=== PATIENT | male | born 1945 | race Caucasian/White ===

== ENCOUNTER → 2017-04-20 | Outpatient (CLI) | payer OTHER, MEDICARE ==
[~2017-04-20] MED LIST: ASCA500 PO; GARL705C PO; GLY/5 PO; MULT-506 PO; ROSU40TA PO
--- NOTE | 2017-04-20 10:11 | DIAGNOSTIC IMAGING REPORT ---
KUB HISTORY: N40.1 Benign prostatic hypertrophy with urinary [id number] COMPARISON: KUB 04/03/2016. FINDINGS: The bowel gas pattern is non-obstructive. There is no organomegaly. No renal calculi. No ureteral calculi. No pneumoperitoneum or pneumatosis. No fracture. Moderate degenerative changes of the bilateral hips. IMPRESSION: 1. Nonobstructive bowel gas pattern. 2. No renal or ureteral stones. Electronically signed by: José Miguel Stahl M.D. 04/20/2017 10:09 AM Dictated Date/Time: 04/20/2017 10:08 AM
== END | disposition home or self-care (01) ==
LOC: C.RAD 09:46
PROVIDERS: ATTEND Urology
DX: N40.1 Benign prostatic hyperplasia with lower urinary tract symptoms (principal); N13.9 Obstructive and reflux uropathy, unspecified

== ENCOUNTER 2023-08-20 22:51 | Inpatient (IN) ==
[2023-08-20 23:53] LABS: Adenovirus PCR Not Detected (NotDetected); Bordetella parapertussis PCR Not Detected (NotDetected); Bordetella pertussis PCR Not Detected (NotDetected); Chlamydia pneumoniae PCR Not Detected (NotDetected); Coronavirus 229E PCR Not Detected (NotDetected); Coronavirus HKU1 PCR Not Detected (NotDetected); Coronavirus NL63 PCR Not Detected (NotDetected); Coronavirus OC43PCR Not Detected (NotDetected); Human Metapneumovirus PCR Not Detected (NotDetected); Influenza A PCR Not Detected (NotDetected); Influenza B PCR Not Detected (NotDetected); Mycoplasma pneumoniae PCR Not Detected (NotDetected); Parainfluenza Virus 1 PCR Not Detected (NotDetected); Parainfluenza Virus 2 PCR Not Detected (NotDetected); Parainfluenza Virus 3 PCR Not Detected (NotDetected); Parainfluenza Virus 4 PCR Not Detected (NotDetected); Respiratory Syncytial VirusPCR Not Detected (NotDetected); Rhinovirus/Enterovirus PCR Not Detected (NotDetected)
[2023-08-20 23:59] LABS: Coronavirus CoV-2 (COVID19)PCR DETECTED (NotDetected)
--- NOTE | 2023-08-21 00:31 | Emergency Department Note ---
History of Present Illness General Chief complaint: Fever Stated complaint: FEVER,SORE THROAT Time Seen by Provider: 08/21/23 00:12 History of Present Illness Maximum Pain Intensity: 6 NAME: JAMIN DURHAM AGE: 78 SEX: M : 1945 ARRIVES VIA: Walk-In INFORMANT: Patient ED PROVIDER(S): MAGGIE Dupree, Con Ortiz MD The patient is a 78-year-old male who arrives to the emergency department for viral illness. Initial workup was performed in triage, he received a viral swab as well as a group A strep swab. The patient did test positive for COVID. I was able to assess the patient in triage two. Upon assessment he reports a sore throat and fever, since Sunday night at 8pm. He reports body aches, chills. He denies cough, congestion, chest pain, or shob. He reports he has been taking Tylenol for his symptoms which has not helped. The patient has rigors, he is febrile at 37.9, and appears ill. Home Medications Medication Instructions Recorded Confirmed Type glyburide 5 mg tablet 10 mg PO BID 03/31/19 08/21/23 History cholecalciferol (vitamin D3) 25 25 mcg PO DAILY 08/21/23 08/21/23 History mcg (1,000 unit) tablet (Vitamin D3) gabapentin 1 dose PO UD 08/21/23 08/21/23 History nirmatrelvir 300 mg (150 mg See Rx Instructions PO .COMPLEX 08/21/23 Rx x2)-ritonavir 100 mg tablet,dose #30 ea pack (Paxlovid) omeprazole 20 mg tablet,delayed 20 mg PO DAILY 08/21/23 08/21/23 History release pioglitazone 1 tab PO DAILY 08/21/23 08/21/23 History rosuvastatin 1 tab PO HS 08/21/23 08/21/23 History Allergies Allergy/AdvReac Type Severity Reaction Status Date / Time No Known Allergies Allergy Unknown Verified 06/27/23 10:49 Past Med/Surg History Medical History (Updated 08/22/23 @ 21:06 by MAGGIE Crandall) GERD (gastroesophageal reflux disease) Diabetes mellitus, type 2 NIDDM Leukemia Hearing deficit BL GUTIERREZ Glaucoma Hyperlipidemia Surgical History History of tooth extraction History of hernia repair X 2 History of colonoscopy Social History Smoking Status: Never smoker Second Hand Exposure: Yes (PREVIOUS EXPOSURE IN WORKPLACE); Do You Dip or Chew Tobacco: No; Hx Alcohol Use: No Hx Substance Use: No Preferred Language: Burundian Communication Ability: Effective Human Capital Manager Required: No Beliefs That Will Affect Care: None Current Living Situation: Alone Feels Safe at Home: Yes Assistive Devices: Glasses and Hearing Aid - Bilateral Physical Exam Vital Signs Vital Signs - 24 hr 08/20/23 22:54 08/21/23 01:00 08/21/23 01:06 Temperature 37.6 C H Temperature Source Oral Pulse Rate 84 83 93 H Pulse Rate [Apical] Pulse Rhythm Regular Pulse Rhythm [Apical] Pulse Strength [Apical] Respiratory Rate 16 16 Respiratory Effort / Characteristics Respiratory Depth Respiratory Pattern Blood Pressure 172/73 H Blood Pressure [Right Arm] Blood Pressure Mean 106 Blood Pressure Mean [Right Arm] Blood Pressure Position [Right Arm] Pulse Oximetry 97 92 Oxygen Delivery Method Room Air Room Air Sepsis Recent Fever Within 48 Hours Yes Sepsis New/Unexplained Change in Mental Status No Sepsis Action Taken by Nursing No Action Required 08/21/23 01:58 Temperature 37.9 C H Temperature Source Oral Pulse Rate Pulse Rate [Apical] 83 Pulse Rhythm Pulse Rhythm [Apical] Regular Pulse Strength [Apical] Normal Respiratory Rate 16 Respiratory Effort / Characteristics Non-Labored Spontaneous Respiratory Depth Normal Respiratory Pattern Regular Blood Pressure Blood Pressure [Right Arm] 156/76 H Blood Pressure Mean Blood Pressure Mean [Right Arm] 102 Blood Pressure Position [Right Arm] Lying Pulse Oximetry 91 Oxygen Delivery Method Room Air Sepsis Recent Fever Within 48 Hours Sepsis New/Unexplained Change in Mental Status Sepsis Action Taken by Nursing VITALS: Vitals are noted on the nurse's note and reviewed by myself. Vital signs stable. GENERAL: 78-year-old male, in mild distress, nondiaphoretic, well-developed well-nourished. SKIN: The skin was without rashes, erythema, edema, or bruising. HEAD: Normocephalic atraumatic. EARS: External auditory canals clear, tympanic membranes pearly hull without erythema or effusion bilaterally. EYES: Pupils equal round and reactive to light and accommodation. Conjunctivae without injection, sclerae without icterus. Extraocular movements intact. NOSE: Patent, turbinates without inflammation or discharge. No sinus tenderness. MOUTH: Mucous membranes moist. Tonsils are not present. Pharynx with erythema no exudate. Uvula midline. Airway patent. Tongue does not deviate. NECK: Supple without nuchal rigidity. Cervical lymphadenopathy. No thyromegaly. Cervical spine is nontender. No JVD. HEART: Regular rate and rhythm without murmurs gallops or rubs. LUNGS: Coarse lung sound bilateral lower lobes, left upper and lower lobe. ABDOMEN: Positive bowel sounds x 4. Soft, nontender, without masses or organomegaly. Hendrickson sign negative. No guarding or rebound tenderness. MUSCULOSKELETAL: No muscle atrophy, erythema, or edema noted. Full range of motion without joint tenderness in all extremities. No tenderness to palpation. Normal gait. Strength 5/5 throughout. NEURO: Patient was alert and oriented to person place and time. No focal neurological deficits. Course Administered Medications Discontinued Medications Acetaminophen (Acetaminophen 500 Mg Tab) 1,000 mg PO NOW STA Stop: 08/21/23 00:32 Last Admin: 08/21/23 01:15 Dose: 1,000 mg Documented By: IDDaly Albuterol (Albuterol Hfa 8 Gm Inhaler) 2 puffs INH Q2H ELLA Stop: 09/20/23 02:29 Last Admin: 08/21/23 03:40 Dose: Not Given Documented By: EMIGDIO Dexamethasone (Dexamethasone Sod Inj 4 Mg/Ml Vial) 6 mg IV NOW STA Stop: 08/21/23 02:20 Last Admin: 08/21/23 02:38 Dose: 6 mg Documented By: MERCEDES Enoxaparin Sodium (Enoxaparin Inj 40 Mg/0.4 Ml Syr) 40 mg SQ Q24H ELLA Stop: 09/20/23 08:59 Last Admin: 08/21/23 09:29 Dose: 40 mg Documented By: DEION Sodium Chloride (Nss) 1,000 mls @ 999 mls/hr IV .Q1H1M ONE Stop: 08/21/23 01:37 Last Infusion: 08/21/23 02:21 Dose: Infused Documented By: Admin: 08/21/23 01:15 Dose: 999 mls/hr Documented By: MERCEDES Dexamethasone 6 mg/ Syringe 1.5 mls @ 1 mls/min IV Q24H ELLA Stop: 09/20/23 08:59 Last Admin: 08/21/23 09:30 Dose: 1 mls/min Documented By: DEION Remdesivir 200 mg/ Sodium (Chloride) 250 mls @ 125 mls/hr IV ONE STA; Protocol Stop: 08/21/23 04:26 Last Infusion: 08/21/23 05:56 Dose: Infused Documented By: Admin: 08/21/23 03:42 Dose: 125 mls/hr Documented By: EMIGDIO Azithromycin 500 mg/ Dextrose 255 mls @ 125 mls/hr IV Q24H ELLA Stop: 08/28/23 05:59 Last Infusion: 08/21/23 15:38 Dose: Infused Documented By: Admin: 08/21/23 05:55 Dose: 125 mls/hr Documented By: EMIGDIO Ibuprofen (Ibuprofen 600 Mg Tab) 600 mg PO NOW STA Stop: 08/21/23 00:32 Last Admin: 08/21/23 01:15 Dose: 600 mg Documented By: IDD Insulin Aspart (Insulin Aspart Per Unit Charge) 0 units SC ACHS ELLA Stop: 09/20/23 07:29 Last Admin: 08/21/23 18:18 Dose: 4 units Documented By: DEION Co-signed By: DIGNA Admin: 08/21/23 12:55 Dose: 8 units Documented By: DEION Co-signed By: DIGNA Admin: 08/21/23 09:40 Dose: 9 units Documented By: DEION Co-signed By: DIGNA Medical Decision Making Differential Diagnosis Viral syndrome, strep pharyngitis, tonsillitis, mononucleosis, retropharyngeal abscess, peritonsillar abscess, otitis media, sinusitis, bronchitis, pneumonia, as well as other pathologies. Medical Records Attestation: I reviewed the patient's medical records. Home Medications Current Medication List: was personally reviewed by me Laboratory Data No leukocytosis, stable hemoglobin and hematocrit, no electrolyte abnormalities. 08/21/23 01:10 08/21/23 01:10 Lab Results 08/20/23 08/21/23 Range/Units 22:55 01:10 WBC 7.68 (4.8-10.8) K/ul RBC 4.88 (4.70-6.10) M/uL Hgb 15.3 (14.0-18.0) g/dl Hct 46.4 (42.0-52.0) % MCV 95.1 (80.0-100.0) fL MCH 31.4 (25.0-34.0) pg MCHC 33.0 (32.0-36.0) g/dL RDW Std Deviation 46.2 (36.4-46.3) fL RDW Coeff of Zachary 13.2 (11.5-14.5) % Plt Count 122 L (130-400) K/uL MPV 10.5 (9.4-12.4) fL Immature Gran % (Auto) 0.4 % Neut % (Auto) 82.5 % Lymph % (Auto) 7.6 % Fleming % (Auto) 8.7 % Eos % (Auto) 0.4 % Baso % (Auto) 0.4 % Neut # (Auto) 6.34 (1.40-6.50) K/uL Lymph # (Auto) 0.58 L (1.20-3.40) K/uL Fleming # (Auto) 0.67 H (0.11-0.59) K/uL Eos # (Auto) 0.03 (0.00-0.50) K/uL Baso # (Auto) 0.03 (0.00-0.20) K/uL Immature Gran # (Auto) 0.03 (0.01-0.20) K/uL Sodium 137 (136-145) mmol/L Potassium 4.1 (3.5-5.1) mmol/L Chloride 101 (98-107) mmol/L Carbon Dioxide 27 (21-32) mmol/L Anion Gap 9 (3-11) BUN 21 (6-23) mg/dl Creatinine 1.06 (0.6-1.4) mg/dl Est Cr Clr Drug Dosing 46.8 ml/min Est GFR ( Amer) 77.0 ml/min Est GFR (Non-Af Amer) 66.4 ml/min BUN/Creatinine Ratio 19.8 (10-20) Glucose 114 H (70-99(Fasting)) mg/dl Estimat Average Glucose 183 mg/dl Hemoglobin A1c 8.0 H (4.5-5.6) % Lactate 1.5 (0.4-2.0) mmol/L Calcium 9.4 (8.6-10.3) mg/dl Total Bilirubin 0.7 (0.2-1.0) mg/dl AST 39 (13-39) U/L ALT 48 (7-52) U/L Alkaline Phosphatase 70 (34-104) U/L Troponin I High Sens 23.1 H (0-20) pg/ml Total Protein 7.2 (6.0-8.3) gm/dl Albumin 4.1 (3.4-5.0) gm/dl Globulin 3.1 (2.5-4.0) gm/dl Albumin/Globulin Ratio 1.3 (0.9-2) Procalcitonin 0.09 (0-0.5) ng/ml Adenovirus (PCR) Not Detected (NotDetected) B. pertussis DNA (PCR) Not Detected (NotDetected) B.parapertussis DNA PCR Not Detected (NotDetected) C. pneumoniae DNA (PCR) Not Detected (NotDetected) Coronavirus OC43 (PCR) Not Detected (NotDetected) Coronavirus HKU1 (PCR) Not Detected (NotDetected) Coronavirus 229E (PCR) Not Detected (NotDetected) SARS-CoV-2 (PCR) DETECTED A* (NotDetected) Coronavirus NL63 (PCR) Not Detected (NotDetected) Human Metapneumovir PCR Not Detected (NotDetected) Influenza Type A (PCR) Not Detected (NotDetected) Influenza Type B (PCR) Not Detected (NotDetected) M. pneumoniae (PCR) Not Detected (NotDetected) Parainfluenza 1 (PCR) Not Detected (NotDetected) Parainfluenza 2 (PCR) Not Detected (NotDetected) Parainfluenza 3 (PCR) Not Detected (NotDetected) Parainfluenza 4 (PCR) Not Detected (NotDetected) RSV (PCR) Not Detected (NotDetected) Entero/Rhino (PCR) Not Detected (NotDetected) Group A Strep (PCR) NOT DETECTED (NotDetected) Blood Pressure Blood Pressure Findings: Normal blood pressure MDM Narrative The patient is an ill-appearing 78-year-old male who I evaluated in triage. He arrives to the emergency department for the above-stated complaint. Initial orders were placed in triage prior to my assessment. The patient was febrile, with rigors. He is not requiring supplemental oxygen. He is COVID-positive, oral group A strep negative. Labs were unremarkable, x-ray imaging was nonsignificant for any acute cardiopulmonary process or pneumonia. The patient was provided with 1 L of normal saline, p.o. Tylenol, and p.o. Motrin. Upon further reassessment the patient was still febrile at 102 F. The patient does live at home alone, and has the ability to decline significantly without help. For the patient's safety and best care I believe the patient should be admitted to the hospitalist. At this time I contacted case management to admit the patient. Dr. Hanna took over care of the patient at that time. Impression & Plan COVID-19 virus infection Discharge Plan Visit Data Chief Complaint: Fever Stated Complaint: FEVER,SORE THROAT ED Provider: Con Ortiz ED Midlevel Provider: Lotus De Los Santos Discharge Problem: COVID-19 virus infection Patient Disposition: Admitted As Inpatient Discharge Instructions Interventions: ED Discharge Assessment Last Done: 08/21/23 03:47
[2023-08-21] MEDS: ACETAMINOPHEN 500 MG TAB PO STA (01:15)
[2023-08-21] MEDS: SODIUM CHLORIDE 0.9% 1,000 ML IV ONE (01:15)
[2023-08-21] MEDS: IBUPROFEN 600 MG TAB PO STA (01:15)
[2023-08-21 01:29] LABS: Hemoglobin 15.3 g/dl (14.0-18.0); Red Blood Count 4.88 M/uL (4.70-6.10); White Blood Count 7.68 K/ul (4.8-10.8)
[2023-08-21 01:30] LABS: Basophils # (auto) 0.03 K/uL (0.00-0.20); Basophils % (auto) 0.4 %; Eosinophils # (auto) 0.03 K/uL (0.00-0.50); Eosinophils % (auto) 0.4 %; Hematocrit (blood only) 46.4 % (42.0-52.0); Immature Granulocytes # (auto) 0.03 K/uL (0.01-0.20); Immature Granulocytes % (auto) 0.4 %; Lymphocytes # (auto) 0.58 K/uL (1.20-3.40); Lymphocytes % (auto) 7.6 %; Mean Corpuscular Hemoglobin 31.4 pg (25.0-34.0); Mean Corpuscular Volume 95.1 fL (80.0-100.0); Mean Platelet Volume 10.5 fL (9.4-12.4); Monocytes # (auto) 0.67 K/uL (0.11-0.59); Monocytes % (auto) 8.7 %; Neutrophils # (auto) 6.34 K/uL (1.40-6.50); Neutrophils % (auto) 82.5 %; Platelet Count 122 K/uL (130-400); RDW Coefficient of Variation 13.2 % (11.5-14.5); RDW Standard Deviation 46.2 fL (36.4-46.3)
[2023-08-21 01:43] LABS: Albumin Globulin Ratio 1.3 (0.9-2); Albumin Level 4.1 gm/dl (3.4-5.0); BUN Creatinine Ratio 19.8 (10-20); Bilirubin,Total 0.7 mg/dl (0.2-1.0); Calcium 9.4 mg/dl (8.6-10.3); Creatinine Clr Calc Pharmacy 46.8 ml/min; Est GFR (Non-African American) 66.4 ml/min; Globulin 3.1 gm/dl (2.5-4.0); Potassium 4.1 mmol/L (3.5-5.1); Total Protein 7.2 gm/dl (6.0-8.3)
[2023-08-21] MEDS ORDERED: COUGH DROP (SUGAR FREE) LOZ 24 LOZ/1 BOX BUCCAL PRN (02:26)
--- NOTE | 2023-08-21 02:28 | History & Physical Report ---
Date of Service August 21, 2023 Assessment & Plan (1) Acute respiratory failure with hypoxia: (2) COVID-19 virus infection: (3) Pharyngitis, acute: (4) Diabetes mellitus, type 2: (5) GERD (gastroesophageal reflux disease): Plan Acute respiratory failure with hypoxia/COVID-19 infection/pharyngitis- Dexamethasone 6 mg IV now and every morning Remdesivir IV per protocol Azithromycin 500 mg IV every morning Albuterol HFA 2 puffs every 2 hours as needed Nasal cannula oxygen, titrate to keep pulse ox around 95% Cepacol lozenges as needed Acetaminophen 600 mg by mouth every 6 hours as needed for mild pain or fever Diabetes mellitus- Hold glyburide and pioglitazone Placed on Accu-Cheks with NovoLog SSI If blood sugar is high in the morning, due to dexamethasone, should add insulin glargine at that time GERD- Change omeprazole to pantoprazole History of Present Illness Chief Complaint: The patient presents to the emergency department with complaint of 24 hours of acute onset of sore throat, fevers, chills, generalized bodyaches and fatigue. Primary Care Provider: NO PCP The patient is a 78-year-old male with a past medical history including carpal tunnel syndrome bilaterally, sensory polyneuropathy, BPH with nocturia, acute respiratory failure, left-sided renal colic, GERD, diabetes mellitus and hyperlipidemia. He presents to the emergency department with 24 hours of acute onset of sore throat, fevers, chills, generalized bodyaches and fatigue. Workup in the emergency department included a [employer] test which was COVID-19 positive. Chest x-ray showed poor inhalation. Lowest pulse ox was 90% on room air at rest Treatment from the emergency department included the following: Tylenol 1 g p.o., ibuprofen 600 mg p.o., and NSS 1 L bolus Allergies Allergy/AdvReac Type Severity Reaction Status Date / Time No Known Allergies Allergy Unknown Verified 06/27/23 10:49 Home Medications Medication Instructions Recorded Confirmed Type glyburide 5 mg tablet 10 mg PO BID 03/31/19 08/21/23 History cholecalciferol (vitamin D3) 25 25 mcg PO DAILY 08/21/23 08/21/23 History mcg (1,000 unit) tablet (Vitamin D3) gabapentin 1 dose PO UD 08/21/23 08/21/23 History omeprazole 20 mg tablet,delayed 20 mg PO DAILY 08/21/23 08/21/23 History release pioglitazone 1 tab PO DAILY 08/21/23 08/21/23 History rosuvastatin 1 tab PO HS 08/21/23 08/21/23 History Past Med/Surg History Medical History (Updated 08/21/23 @ 04:05 by Neno Estrada MD) GERD (gastroesophageal reflux disease) Diabetes mellitus, type 2 NIDDM Leukemia Hearing deficit BL GUTIERREZ Glaucoma Hyperlipidemia Surgical History History of tooth extraction History of hernia repair X 2 History of colonoscopy Social History Smoking Status: Never smoker Second Hand Exposure: Yes (PREVIOUS EXPOSURE IN WORKPLACE); Do You Dip or Chew Tobacco: No; Hx Alcohol Use: No Hx Substance Use: No Preferred Language: Moldovan Communication Ability: Effective Tile Erector Required: No Beliefs That Will Affect Care: None Current Living Situation: Spouse Feels Safe at Home: Yes Assistive Devices: Glasses and Hearing Aid - Bilateral Review of Systems Review of Systems: The patient denies chest pain, palpitations, cough, lower extremity swelling, sweats, nausea, vomiting, diarrhea , constipation, abdominal pain, pelvic pain, blood in urine or stool, dysuria, urinary frequency or urgency, memory loss, loss of consciousness, rash, abnormal bruising or bleeding, imbalance, focal weakness, numbness or tingling in arms or legs, back or neck pain, or night sweats. The review of systems is otherwise negative other than for that already noted above, and at least 10 systems have been reviewed. Physical Exam Physical Exam: The patient is awake, alert and oriented 3, normocephalic and atraumatic, lying in bed and in no acute distress. HEENT--PERRL, EOMI, mucous membranes and oropharynx mildly dry and erythematous Neck--supple. No JVD. No bruits. Thyroid normal, trachea midline, no adenopathy. Heart--normal S1 and S2. No murmurs, rubs or gallops. Lungs--few coarse breath sounds with wheezes bilaterally. No respiratory distress, no accessory muscle use. Abdomen--normal bowel sounds and soft. Nontender. Nondistended, no hernias or masses, no organomegaly. Extremities--no cyanosis or clubbing. No edema. Dermatologic--normal skin turgor, normal color, no abnormal lymph nodes, no rash. Neurologic--cranial nerves II through XII grossly intact. Rheumatologic--normal range of motion. Psychiatric--normal affect. Results & Data Results & Data Vital Signs (Past 12 Hours) Vital Signs Temp Pulse Pulse Resp BP BP Pulse Ox 08/21/23 01:58 37.9 C H 83 16 156/76 H 91 08/21/23 01:06 93 H 08/21/23 01:00 83 16 92 08/20/23 22:54 37.6 C H 84 16 172/73 H 97 O2 Del Method 08/21/23 01:58 Room Air 08/21/23 01:06 08/21/23 01:00 Room Air 08/20/23 22:54 Room Air Laboratory Results Laboratory Results WBC 7.68 K/ul (4.8-10.8) 08/21/23 01:10 RBC 4.88 M/uL (4.70-6.10) 08/21/23 01:10 Hgb 15.3 g/dl (14.0-18.0) 08/21/23 01:10 Hct 46.4 % (42.0-52.0) 08/21/23 01:10 MCV 95.1 fL (80.0-100.0) 08/21/23 01:10 MCH 31.4 pg (25.0-34.0) 08/21/23 01:10 MCHC 33.0 g/dL (32.0-36.0) 08/21/23 01:10 RDW Std Deviation 46.2 fL (36.4-46.3) 08/21/23 01:10 RDW Coeff of Zachary 13.2 % (11.5-14.5) 08/21/23 01:10 Plt Count 122 K/uL (130-400) L 08/21/23 01:10 MPV 10.5 fL (9.4-12.4) 08/21/23 01:10 Immature Gran % (Auto) 0.4 % 08/21/23 01:10 Neut % (Auto) 82.5 % 08/21/23 01:10 Lymph % (Auto) 7.6 % 08/21/23 01:10 Deuel % (Auto) 8.7 % 08/21/23 01:10 Eos % (Auto) 0.4 % 08/21/23 01:10 Baso % (Auto) 0.4 % 08/21/23 01:10 Neut # (Auto) 6.34 K/uL (1.40-6.50) 08/21/23 01:10 Lymph # (Auto) 0.58 K/uL (1.20-3.40) L 08/21/23 01:10 Deuel # (Auto) 0.67 K/uL (0.11-0.59) H 08/21/23 01:10 Eos # (Auto) 0.03 K/uL (0.00-0.50) 08/21/23 01:10 Baso # (Auto) 0.03 K/uL (0.00-0.20) 08/21/23 01:10 Immature Gran # (Auto) 0.03 K/uL (0.01-0.20) 08/21/23 01:10 Sodium 137 mmol/L (136-145) 08/21/23 01:10 Potassium 4.1 mmol/L (3.5-5.1) 08/21/23 01:10 Chloride 101 mmol/L (98-107) 08/21/23 01:10 Carbon Dioxide 27 mmol/L (21-32) 08/21/23 01:10 Anion Gap 9 (3-11) 08/21/23 01:10 BUN 21 mg/dl (6-23) 08/21/23 01:10 Creatinine 1.06 mg/dl (0.6-1.4) 08/21/23 01:10 Est Cr Clr Drug Dosing 46.8 ml/min 08/21/23 01:10 Est GFR ( Amer) 77.0 ml/min 08/21/23 01:10 Est GFR (Non-Af Amer) 66.4 ml/min 08/21/23 01:10 BUN/Creatinine Ratio 19.8 (10-20) 08/21/23 01:10 Glucose 114 mg/dl (70-99(Fasting)) H 08/21/23 01:10 Lactate 1.5 mmol/L (0.4-2.0) 08/21/23 01:10 Calcium 9.4 mg/dl (8.6-10.3) 08/21/23 01:10 Total Bilirubin 0.7 mg/dl (0.2-1.0) 08/21/23 01:10 AST 39 U/L (13-39) 08/21/23 01:10 ALT 48 U/L (7-52) 08/21/23 01:10 Alkaline Phosphatase 70 U/L (34-104) 08/21/23 01:10 Troponin I High Sens 23.1 pg/ml (0-20) H 08/21/23 01:10 Total Protein 7.2 gm/dl (6.0-8.3) 08/21/23 01:10 Albumin 4.1 gm/dl (3.4-5.0) 08/21/23 01:10 Globulin 3.1 gm/dl (2.5-4.0) 08/21/23 01:10 Albumin/Globulin Ratio 1.3 (0.9-2) 08/21/23 01:10 Procalcitonin 0.09 ng/ml (0-0.5) 08/21/23 01:10 Adenovirus (PCR) Not Detected (NotDetected) 08/20/23 22:55 B. pertussis DNA (PCR) Not Detected (NotDetected) 08/20/23 22:55 B.parapertussis DNA PCR Not Detected (NotDetected) 08/20/23 22:55 C. pneumoniae DNA (PCR) Not Detected (NotDetected) 08/20/23 22:55 Coronavirus OC43 (PCR) Not Detected (NotDetected) 08/20/23 22:55 Coronavirus HKU1 (PCR) Not Detected (NotDetected) 08/20/23 22:55 Coronavirus 229E (PCR) Not Detected (NotDetected) 08/20/23 22:55 SARS-CoV-2 (PCR) DETECTED (NotDetected) A* 08/20/23 22:55 Coronavirus NL63 (PCR) Not Detected (NotDetected) 08/20/23 22:55 Human Metapneumovir PCR Not Detected (NotDetected) 08/20/23 22:55 Influenza Type A (PCR) Not Detected (NotDetected) 08/20/23 22:55 Influenza Type B (PCR) Not Detected (NotDetected) 08/20/23 22:55 M. pneumoniae (PCR) Not Detected (NotDetected) 08/20/23 22:55 Parainfluenza 1 (PCR) Not Detected (NotDetected) 08/20/23 22:55 Parainfluenza 2 (PCR) Not Detected (NotDetected) 08/20/23 22:55 Parainfluenza 3 (PCR) Not Detected (NotDetected) 08/20/23 22:55 Parainfluenza 4 (PCR) Not Detected (NotDetected) 08/20/23 22:55 RSV (PCR) Not Detected (NotDetected) 08/20/23 22:55 Entero/Rhino (PCR) Not Detected (NotDetected) 08/20/23 22:55 Group A Strep (PCR) NOT DETECTED (NotDetected) 08/20/23 22:55 Code Status & VTE Plan Code Status Full code VTE Prophylaxis Plan VTE Prophylaxis will be ordered: Yes PG Care Time/CCT Total # of Minutes Spent Total Time Spent with Patient: Total time spent is greater than 50% in coordination of care (as documented) at patient's floor/unit and/or counseling patient: Coding Level of Care Code 14615 INT INP/OBS CARE 3/75MIN Diagnoses Acute respiratory failure with hypoxia J96.01 COVID-19 virus infection U07.1 Pharyngitis, acute J02.9 Diabetes mellitus, type 2 E11.9 GERD (gastroesophageal reflux disease) K21.9
[2023-08-21] MEDS: DEXAMETHASONE SOD INJ 4 MG/ML VIAL IV STA (02:38)
[2023-08-21] MEDS ORDERED: ALBUTEROL HFA 8 GM INHALER INH PRN (02:38)
[2023-08-21 02:55] LABS: Troponin I High Sensitivity 23.1 pg/ml (0-20)
[2023-08-21] MEDS: ALBUTEROL HFA 8 GM INHALER INH SCH (03:40)
[2023-08-21] MEDS: REMDESIVIR 200 MG in SODIUM CHLORIDE 0.9% 210 ML IV STA (03:42)
[2023-08-21] MEDS ORDERED: GLUCOSE 40% GEL 15 GM TUBE PO PRN (03:47)
[2023-08-21] MEDS ORDERED: ACETAMINOPHEN 325 MG TAB PO PRN (03:47)
[2023-08-21] MEDS ORDERED: ONDANSETRON INJ 2 MG/ML 2 ML VIAL IV PRN (03:47)
[2023-08-21] MEDS ORDERED: CARBOHYDRATES FOR HYPOGLYCEMIA PO PRN (03:47)
[2023-08-21] MEDS ORDERED: GLUCAGON FOR INJ 1 MG VIAL SQ PRN (03:47)
[2023-08-21] MEDS ORDERED: DEXTROSE 50% 50 ML SYRINGE IV PRN (03:47)
[2023-08-21] MEDS ORDERED: GLUCOSE 10 TAB/TUBE PO PRN (03:47)
[2023-08-21] MEDS: AZITHROMYCIN 500 MG in DEXTROSE 5% 250 ML IV SCH (05:55)
--- OUTSIDE RECORDS SUMMARY | 2023-08-21 06:18 | External Medical Summary | Continuity of Care Document ---
Author Name Unknown Organization [facility] [address] [facility] [address] [id number] [facility] [id number] Date(s): 08/14/23 - 08/14/23 [facility] [address] [facility] [address] [id number] Encounter Diagnosis Inflamed seborrheic keratosis(Discharge Diagnosis) - 08/14/23 Skin lesion of face(Discharge Diagnosis) - 08/14/23 Discharge Disposition: Home or Self Care Attending Physician: MD Rodriguez Thomas A Allergies, Adverse Reactions, Alerts No Known Allergies Assessment and Plan Extracted from: Title:Clinical Document Author:MD Michael, Aman Maldonado Date:08/14/23 OUTPATIENT NOTE Name: DAMION APPLE Patient Number:1 [id number] : 1945 Date of Service: 08/14/2023 _ Damion Apple presents for evaluation of a keratotic papule present on the right malar cheek. The patient notes that this is near the site of a prior Mohs surgery. Lesion appears as a 4 mm papule which was biopsied today for that reason. Suspicious lesion right malar cheek. Consent obtained. Timeout signed. Lidocaine with epinephrine local anesthesia followed by tangential biopsy and hemostasis with electrocautery. Specimen submitted for pathology patient will be informed of the result of the pathology report. If positive would recommend Mohs surgery. Petrolatum and bandage applied. Patient tolerated procedure well. Patient notes keratotic papules present on the right and left anterior thighs these were treated with cryotherapy at patient request and with his consent as inflamed seborrheic keratoses. Side effects were discussed. Review of systems medications allergies as noted on the chart. The patient is in stable health. Continues with his car collection. Notes no other new skin problems. Examination reveals pleasant well-nourished white male type II skin alert and oriented x 3 with normal mood and affect. Examination of the head, neck, legs reveals the findings noted above and patient denies lesions elsewhere. He will return in 3 months and we will be in touch with him regarding biopsy results. Medications garlic oral tablet Start: 03/21/13 8:34:00, 1,000 mg =, PO, Daily Start Date: 03/21/13 Status: Ordered glyBURIDE 5 mg oral tablet Start: 03/21/13 8:33:00, 1 tab, PO, bid Start Date: 03/21/13 Status: Ordered multivitamin Start: 03/21/13 8:34:00, 1 tab, PO, Daily Start Date: 03/21/13 Status: Ordered raNITIdine Start: 04/03/18 9:59:00 EDT, PO, bid Start Date: 04/03/18 Status: Ordered rosuvastatin 40 mg oral tablet Start: 03/21/13 8:35:00, 1 tab, PO, qhs Start Date: 03/21/13 Status: Ordered Vitamin C 1000 mg oral tablet Start: 03/21/13 8:34:00, 1 tab, PO, bid Start Date: 03/21/13 Status: Ordered Mental Status 08/14/23 Barriers to Learning one year None evide nt Mandatory Health Literacy Documentation Yes Health Literacy Communication Barriers N ever Primary Language [place] Problem List Condition Confirmation Course Effective Dates Status Health St atus Informant AK (actinic keratosis) Confirmed Active Acid reflux Confirmed Active Left hand pain Confirmed Active High cholesterol Confirmed Active High blood sugar Confirmed Active SK (seborrheic keratosis) Confirmed Active S/P orthopedic surgery, follow-up exam Confirmed Active Trigger finger Confirmed Active Diagnosis Diagnosis Type Effective Dates Health Status Clinical Service Informant Skin lesion of face Discharge Diagnosis 08/14/23 Inflamed seborrheic keratosis Discharge Diagnosis 08/14/23 Procedures Procedure Date Related Diagnosis Body Site Status Shave biopsy and cauterization of skin 08/14/23 Completed Surgery 1 04/2019 Completed Shave biopsy 2 01/01/18 Completed Colonoscopy Completed Hernia repair Completed None Completed 1Worked on left ring finger 2Right exterior forearm Social History Social History Type Response Smoking Status Never smoked cigaret [place] Sex Male Outpatient Note * MD Michael, Obed Maldonado: PERFORM Event Display: .Outpt Note Authored Date: [id number] OUTPATIENT NOTE Name: DAMION APPLE Patient Number:1 [id number] : 1945 Date of Service: 08/14/2023 _ Damion Apple presents for evaluation of a keratotic papule present on the right malar cheek. The patient notes that this is near the site of a prior Mohs surgery. Lesion appears as a 4 mm papule which was biopsied today for that reason. Suspicious lesion right malar cheek. Consent obtained. Timeout signed. Lidocaine with epinephrine local anesthesia followed by tangential biopsy and hemostasis with electrocautery. Specimen submittedfor pathology patient will be informed of the result of the pathology report. If positive would recommend Mohs surgery. Petrolatum and bandage applied. Patient tolerated procedure well. Patient notes keratotic papules present on the right and left anterior thighs these were treated with cryotherapy at patient request and with his consent as inflamed seborrheic keratoses. Side effects were discussed. Review of systems medications allergies as noted on the chart. The patient is in stable health. Continues with his car collection. Notes no other new skin problems. Examination reveals pleasant well-nourished white male type II skin alert and oriented x 3 with normal mood and affect. Examination of the head, neck, legs reveals the findings noted above and patient denies lesions elsewhere. He will return in 3 months and we will be in touch with him regarding biopsy results. Electronic Signature on File Electronically Reviewed/Signed by: Obed Rodriguez MD Author Signature Dt/Tm:08/14/2023 04:17 PM Department of Dermatology [facility] Patient Care team information Care Team Related Persons Name: MARVA TIFFANY Address: home [address] [place] [phone] Name: TAPANBANGCARMINE Address: home [address] [place] [phone] Name: LARON EAGLE Address: home No [facility] [id number]
[2023-08-21 06:34] LABS: Appearance Urine Clear (Clear); Bacteria Urine Automated Negative (Negative); Bilirubin Urine Negative (Negative); Blood Urine Negative (Negative); Color Urine Dark Yellow; Glucose Urine UA Negative (Negative); Ketones Urine 1+ (Negative); Leukocyte Esterase Urine Negative (Negative); Nitrite Urine Negative (Negative); Protein Urine 1+ (Negative); RBC Urine Automated 0-4 /hpf (0-4); Specific Gravity Urine 1.028 (1.000-1.030); Urobilinogen Urine Negative (Negative)
--- NOTE | 2023-08-21 07:11 | XRay Report ---
XR chest 1V portable CLINICAL HISTORY: coarse lung sounds COMPARISON STUDY: Chest radiograph October 18, 2014. FINDINGS: Mild elevation of the right hemidiaphragm is unchanged. There is no consolidation to sugges t pneumonia. Linear bilateral densities represent atelectasis or scarring. There is no pneumothorax o r pleural effusion. Cardiac size is normal. Mediastinal contours are normal. There is no evidence for pulmonary edema. IMPRESSION: No acute cardiopulmonary findings. ACT 112: Negative or not required by law. Electronically signed by: Saqib Johnson M.D. 08/21/2023 7:09 AM
[2023-08-21 07:37] LABS: Estimated Average Glucose 183 mg/dl
--- NOTE | 2023-08-21 08:12 | Hospitalist Progress Note ---
Date of Service August 21, 2023 Assessment & Plan Plan (1) Acute respiratory failure with hypoxia: (2) COVID-19 virus infection: (3) Pharyngitis, acute: (4) Diabetes mellitus, type 2: (5) GERD (gastroesophageal reflux disease): Plan 1) Acute respiratory failure with hypoxia/COVID-19 infection/pharyngitis- Dexamethasone 6 mg IV now and every morning Remdesivir IV per protocol Azithromycin 500 mg IV every morning, WBC 7.7 Albuterol HFA 2 puffs every 2 hours as needed Nasal cannula oxygen, titrate to keep pulse ox around 95% Cepacol (benzocaine or menthol) lozenges as needed Acetaminophen 600 mg by mouth every 6 hours as needed for mild pain or fever 2) Elevated troponins HS-Trops, 29.9 <-- 23.1 2) Diabetes mellitus- T2DM, right? - A1C, 8.0 Hold glyburide and pioglitazone Placed on Accu-Cheks with NovoLog (Aspart) SSI If blood sugar is high in the morning, due to dexamethasone, should add insulin glargine at that time 3) GERD- Change omeprazole to pantoprazole DVT prophylaxis: Lovenox Full Code Admission and Anticipated Discharge Date Admission Date: August 21, 2023 Review of Systems Constitutional: no fever, no chills, no body aches and no fatigue Respiratory: + cough; no chest congestion and no dysp sarahi Cardiovascular: + chest pain (never had any chest pain) Gastrointestinal: no nausea, no vomiting, no constipation and no diarrhea/loose stools Genitourinary: no dysuria, no urinary frequency or no flank pain Neurologic: + loss of sensation (baseline numbness i n l. hand); no tingling and no numbness Hematologic / Lymphatic: no easy bleeding and no easy bruising Allergy / Immunological: no itchy eyes and no rash Results & Data Results & Data Vital Signs (Past 12 Hours) Vital Signs Temp Pulse Pulse Resp BP BP Pulse Ox 08/21/23 07:50 36.4 C L 55 L 18 153/75 H 97 08/21/23 06:44 36.4 C L 64 16 161/80 H 98 08/21/23 05:00 61 20 133/65 93 08/21/23 04:07 68 08/21/23 03:30 71 16 137/62 95 08/21/23 01:58 37.9 C H 83 16 156/76 H 91 08/21/23 01:06 93 H 08/21/23 01:00 83 16 92 08/20/23 22:54 37.6 C H 84 16 172/73 H 97 O2 Del Method 08/21/23 07:50 Room Air 08/21/23 06:44 Room Air 08/21/23 05:00 Room Air 08/21/23 04:07 08/21/23 03:30 Room Air 08/21/23 01:58 Room Air 08/21/23 01:06 08/21/23 01:00 Room Air 08/20/23 22:54 Room Air
--- NOTE | 2023-08-21 08:14 | Electrocardiogram Report ---
Test Reason : Blood Pressure : / mmHG Vent. Rate : 079 BPM Atrial Rate : 079 BPM P-R Int : 188 ms QRS Dur : 092 ms QT Int : 364 ms P-R-T Axes : 036 -33 050 degrees QTc Int : 417 ms Normal sinus rhythm Left axis deviation Moderate voltage criteria for LVH, may be normal variant Abnormal ECG When compared with ECG of 18-JUN-2022 11:46, No significant change was found Confirmed by Ottoniel Young ([id number]) on 08/21/2023 8:14:39 AM Referred By: REFERRED SELF Confirmed By:Ottoniel Young
[2023-08-21] MEDS: ENOXAPARIN INJ 40 MG/0.4 ML SYR SQ SCH (09:29)
[2023-08-21] MEDS: dexAMETHasone 6 MG in SYRINGE 0 ML IV SCH (09:30)
[2023-08-21] MEDS: INSULIN ASPART PER UNIT CHARGE SC SCH (09:40)
--- NOTE | 2023-08-21 16:55 | Discharge Summary ---
Date of Service August 21, 2023 Admission HPI Per Admitting Provider The patient is a 78-year-old male with a past medical history including carpal tunnel syndrome bilaterally, sensory polyneuropathy, BPH with nocturia, acute respiratory failure, left-sided renal colic, GERD, diabetes mellitus and hyperlipidemia. He presents to the emergency department with 24 hours of acute onset of sore throat, fevers, chills, generalized bodyaches and fatigue. Workup in the emergency department included a BioFire test which was COVID-19 positive. Chest x-ray showed poor inhalation. Lowest pulse ox was 90% on room air at rest Treatment from the emergency department included the following: Tylenol 1 g p.o., ibuprofen 600 mg p.o., and NSS 1 L bolus Admission Exam Per Admitting Provider Physical Exam: The patient is awake, alert and oriented 3, normocephalic and atraumatic, lying in bed and in no acute distress. HEENT--PERRL, EOMI, mucous membranes and oropharynx mildly dry and erythematous Neck--supple. No JVD. No bruits. Thyroid normal, trachea midline, no adenopathy. Heart--normal S1 and S2. No murmurs, rubs or gallops. Lungs--few coarse breath sounds with wheezes bilaterally. No respiratory distress, no accessory muscle use. Abdomen--normal bowel sounds and soft. Nontender. Nondistended, no hernias or masses, no organomegaly. Extremities--no cyanosis or clubbing. No edema. Dermatologic--normal skin turgor, normal color, no abnormal lymph nodes, no rash. Neurologic--cranial nerves II through XII grossly intact. Rheumatologic--normal range of motion. Psychiatric--normal affect. Principal Diagnosis COVID viral infection Discharge Exam Constitutional WD/WN, vitals as above Respiratory normal respiratory effort, lungs clear to auscultation Cardiovascular RRR, no murmur, no edema Gastrointestinal (Abdomen) normal bowel sounds, soft, nontender, no hepatosplenomegaly Musculoskeletal Extremities: extremities normal to inspection; full ROM of extremities and normal strength Neurologic moves all extremities and awake; not confused Psychiatric A+Ox3, euthymic affect Discharge Data Allergies Allergy/AdvReac Type Severity Reaction Status Date / Time No Known Allergies Allergy Unknown Verified 06/27/23 10:49 Consultations 08/21/23 02:13 ED Decision to Admit Stat Hospital Course (1) COVID-19 virus infection: (2) Pharyngitis, acute: Plan (1) Acute respiratory failure with hypoxia: (2) COVID-19 virus infection: (3) Pharyngitis, acute: (4) Diabetes mellitus, type 2: (5) GERD (gastroesophageal reflux disease): Plan 1) Acute respiratory failure with hypoxia/COVID-19 infection/pharyngitis- Received Dexamethasone 6 mg IV daily and Remdesivir IV per protocol during hospital stay for 24 hour. Significant improvement in symptoms. Pulse ox at the time of discharge 97% on RA -Discharge on Paxlovid, BID, 5-day course - Hold the rosuvastatin and glyburide while taking the Paxlovid 2) Elevated troponins - resolved HS-Trops, 25 <-- 29.9 <-- 23.1 3) HTN - BP fluctuating while at the hospital. outpatient f/u with pcp for med titration. Total Time Total Time Spent Total Time Spent (In Minutes): see attending attestation Discharge Plan Discharge Items Patient Disposition: Home - Self-Care Reason For Visit: COVID-19, HYPOXIA, PHARYNGITIS Discharge Diagnosis: COVID viral infection Activity: Resume your previous activity Non-emergency contact: Primary Care Provider Call non-emergency contact if: you have any medication questions and your symptoms worsen Follow-up/Referrals: PCP,NO [Primary Care Provider] - Diet: Carb Consistent or DM2 Addtl Attending Provider Instructions: You were admitted to the hospital for pharyngitis and COVID infection. You were treated with remdesivir and dexamethasone. A discharge summary will be sent to your primary care physician to ensure continuity of care. Please bring this discharge summary with you to your next office appointment so that your provider can review it at that time. Follow-up appointments: We have requested a follow-up appointment with your primary care physician within one week of discharge. Please call their office if you do not hear from them. Keep all your follow-up appointments as already scheduled. If you cannot make an appointment, notify your provider. Medications: Your medication list has been reviewed and reconciled upon discharge to ensure accuracy and continuity of care. An updated list of all your medications is included with your hospital discharge paperwork. Please review this list chelsi sely, and make note of any changes. We sent a new medication called Paxlovid to your pharmacy. Take Palovid per instructions on the package for 5 days. Please hold both your rosuvastatin and glyburide for the five days that you are taking the Paxlovid due to drug-drug interactions. Take your medications as instructed; do not skip a dose of your medicines. Make sure all of your doctors know every medicine you are taking (including vyrg-kvi-eybdkuf medicines, vitamins, and supplements). Call your primary care provider before taking any new medicines (including [id number] medicines, vitamins, and supplements), because some of these may interact with your current medications, or may make your symptoms worse. Tell your primary care provider if you cannot afford your medications. CONTACT YOUR PRIMARY CARE PROVIDER if you experience any of the following: worsening symptoms of prolonged fever, extreme fatigue, shortness of breath Difficulty following your treatment plan, or difficulty taking medications CALL 911 OR GO TO THE EMERGENCY DEPARTMENT if you experience any of the following: Sudden, severe abdominal pain or nausea/vomiting Severe chest pain, or chest pain that radiates (moves) to your jaw or arm Sudden, severe shortness of breath or difficulty breathing Thank you for allowing us to participate in your care Pending Studies at Discharge: No Stand-Alone Forms: My [facility] Grid Net, Smoking Cessation Medications and DC Order Prescriptions: New Paxlovid 300 mg (150 mg x 2)-100 mg tablets,dose pack See Rx Instructions .ROUTE .COMPLEX Qty: 30 0RF Rx Instructions: take TWO 150 mg tablets of nirmatrelvir with ONE 100 mg tablet of ritonavir twice daily for 5 days Continued omeprazole 20 mg Tablet,Delayed Release (Dr/Ec) 20 mg PO DAILY pioglitazone 1 tab PO DAILY Rx Instructions: pt doesnt know dose..[facility] cholecalciferol (vitamin D3) [Vitamin D3] 25 mcg (1,000 unit) Tablet 25 mcg PO DAILY gabapentin 1 dose PO UD Rx Instructions: pt doesnt know does....Through [place] Held glyburide 5 mg Tablet 10 mg PO BID Hold Instructions: Resume on 08/27/23. rosuvastatin 1 tab PO HS Hold Instructions: Resume on 08/27/23. Rx Instructions: pt doesnt know dose...through [place] Discharge Orders: Discharge Order (Routine); Ordered 08/21/23 Ordered By: Garrett Shannon/Other Patient Handouts: High Blood Sugar (Hyperglycemia), Managing Type 2 Diabetes Admission Data Admit Date/Time: 08/21/23 02:27 Attending Provider: Marge Guillaume Admit Provider: Neno Estrada Primary Care Provider: PCP,KERA Other Providers: Neno Estrada Other Interventions: Discharge Summary Assessment (RN) Last Done: 08/21/23 18:09 Supervising Physician Co-Signing Physician Notes Attending Physician Supervision Note: I independently interviewed and examined the patient and verified the waters history and physical, reviewed labs and image studies and agree with findings and care plan noted above.
[2023-08-22] MEDS ORDERED: REMDESIVIR 100 MG in SODIUM CHLORIDE 0.9% 230 ML IV SCH (12:00)
== END 2023-08-21 18:46 | disposition home or self-care (01) | DRG 177 ==
LOC: ED 22:51 → SUATTDRO 08-21 02:27 → EDINP 08-21 02:27 → 2S 08-21 03:47